=== PATIENT | female | born 2000 | race Caucasian/White ===

== ENCOUNTER 2019-02-08 13:20 | Emergency (ER) | payer MEDICAID ==
[~2019-02-08] VITALS: Ht 154.9 cm; Wt 51.4 kg
[2019-02-08 13:28] VITALS: BP 109/73; Ht 154.9 cm; Wt 51.4 kg
[2019-02-08] MEDS ORDERED: PROZAC10 MG PO (13:30)
[2019-02-08] MEDS ORDERED: TRAZODONE HCL150 MG PO (13:30)
[2019-02-08] MEDS ORDERED: ZPAK PO (14:44)
[2019-02-08] MEDS ORDERED: ROBITUSSIN DM 110 ML PO (14:44)
== END 2019-02-08 15:12 | disposition home or self-care (01) ==
LOC: D.ER 13:20
DX: J06.9 Acute upper respiratory infection, unspecified (principal); R09.89 Other specified symptoms and signs involving the circulatory and respiratory systems